=== PATIENT | female | born 1975 | race Caucasian/White ===

== ENCOUNTER → 2017-09-25 | Outpatient (CLI) | payer OTHER ==
--- NOTE | 2017-09-25 16:53 | P.HPBAR ---
Bariatric H&P - History & Physicial H&P Date: 09/25/17 History & Physicial: Visit/CC: Patient initial contact: Initial weight: Initial weight in pounds: Height: Initial BMI: Last weight: Current weight: 181 Current weight in pounds: Current BMI: [place] body weight (based on NIH guidelines): Excess body weight loss: The patient is a 42 year-old F who presents for Bariatric Assessment. The patient presents today for lab band follow up. She's not been seen in approximately 8 years. She has complaints of pain at her port site. She states she was lifting heavy object felt some pain there. She's also developed a well-formed panniculus and wishes to undergo panniculectomy. Past Medical History Additional Past Medical History / Comment(s): anemia "pretty much" resolved after hysterectomy performed History of Any Multi-Drug Resistant Organisms: None Reported Past Surgical History: Bariatric Surgery, Cholecystectomy, Hysterectomy Additional Past Surgical History / Comment(s): lap band placed 2008 (?), partial hysterectomy Apr 2017 Past Anesthesia/Blood Transfusion Reactions: No Reported Reaction, Motion Sickness Additional Past Anesthesia/Blood Transfusion Reaction / Comm: No blood transfusion to date. MOtion sickness noted on rides, not in vehicles Past Psychological History: No Psychological Hx Reported Smoking Status: Never smoker Past Alcohol Use History: Rare Past Drug Use History: None Reported Surgical - Exam - General well developed, no distress - Abdomen No evidence of hernia at the port site. Patient is well-formed panniculus with evidence of chronic skin irritation's. Abdomen: soft, non tender Bariatric Assessment & Plan Plan: Panniculus. Patient will undergo authorization for panniculectomy. Her port site will be observed. There is known 70 infection or hernia. I have reassured patient she most likely has a small string to the area. Bariatric Checklist Checklist: Plan: Checklist: EGD: 1. Hiatal hernia: 2. H. Pylori: HgbA1c: Vitamin D: Smoking: Never smoker Primary care physician referral: Psychiatry clearance: Cardiology clearance: Sleep study: Diet journal: VTE risk score: VTE risk level: Rehab needs at discharge:
[2017-09-25 17:19] VITALS: BP 96/50; PULSE 78; TEMP 98.2; BMI 32.0
== END ==
LOC: BARWHC3 15:40
PROVIDERS: ATTEND Surgery
DX: Z48.815 Encounter for surgical aftercare following surgery on the digestive system (principal); E65 Localized adiposity; Z98.84 Bariatric surgery status
CPT/HCPCS: 99211

== ENCOUNTER → 2020-02-17 | Outpatient (CLI) | payer OTHER ==
[2020-02-17 13:49] VITALS: BP 120/77; PULSE 61; TEMP 98.1; BMI 35.4
--- NOTE | 2020-02-17 14:30 | P.HPBAR ---
Bariatric H&P - History & Physicial H&P Date: 02/17/20 History & Physicial: Visit/CC: lap band adjustment; poss PENELOPENI Patient initial contact: Initial weight: Initial weight in pounds: Height: 5 ft 3 in Initial BMI: Last weight: Current weight: 90.718 kg Current weight in pounds: 200.00 Current BMI: 35.4 [place] body weight (based on NIH guidelines): 52.163 kg Excess body weight loss: The patient is a 45 year-old F who presents for Bariatric Assessment. Patient presents today for LAP-BAND adjustment. Patient is requesting a fill her band. Past Medical History Additional Past Medical History / Comment(s): anemia "pretty much" resolved after hysterectomy performed; vitamin defiency History of Any Multi-Drug Resistant Organisms: None Reported Past Surgical History: Bariatric Surgery, Cholecystectomy, Hysterectomy Additional Past Surgical History / Comment(s): lap band placed 2008 (?), partial hysterectomy Apr 2017 Past Anesthesia/Blood Transfusion Reactions: No Reported Reaction, Motion Sickness Additional Past Anesthesia/Blood Transfusion Reaction / Comm: No blood transfusion to date. MOtion sickness noted on rides, not in vehicles Smoking Status: Never smoker Surgical - Exam Vital Signs Temp Pulse BP 98.1 F 61 120/77 02/17/20 13:30 02/17/20 13:30 02/17/20 13:30 - General well nourished, no distress - Eyes PERRL - ENT normal pinna - Neck no masses - Respiratory normal expansion - Cardiovascular Rhythm: regular - Abdomen Abdomen: soft, non tender Bariatric Assessment & Plan Plan: Patient's lap band adjustment. She 0.5 mL added to her band. Bariatric Checklist Checklist: Plan: Checklist: EGD: 1. Hiatal hernia: 2. H. Pylori: HgbA1c: Vitamin D: Smoking: Never smoker Primary care physician referral: no PCP - Psychiatry clearance: Cardiology clearance: Sleep study: Diet journal: VTE risk score: VTE risk level: Rehab needs at discharge:
== END | disposition home or self-care (01) ==
LOC: BARWHC3 13:14
PROVIDERS: ATTEND Surgery
DX: Z46.51 Encounter for fitting and adjustment of gastric lap band (principal); Z98.84 Bariatric surgery status; Z90.49 Acquired absence of other specified parts of digestive tract
CPT/HCPCS: 99212

== ENCOUNTER → 2020-03-16 | Outpatient (CLI) | payer OTHER ==
[2020-03-16 13:33] VITALS: BP 120/79; PULSE 66; RESP 18; TEMP 98
--- NOTE | 2020-03-16 13:48 | P.HPBAR ---
Bariatric H&P - History & Physicial H&P Date: 03/16/20 History & Physicial: Visit/CC: lap band adjustment Patient initial contact: Initial weight: Initial weight in pounds: Height: 5 ft 3 in Initial BMI: Last weight: Current weight: 92.079 kg Current weight in pounds: Current BMI: [place] body weight (based on NIH guidelines): Excess body weight loss: The patient is a 45 year-old F who presents for Bariatric Assessment. Patient presents today for band adjustment. She currently is hungry. Past Medical History Additional Past Medical History / Comment(s): anemia "pretty much" resolved after hysterectomy performed; vitamin defiency History of Any Multi-Drug Resistant Organisms: None Reported Past Surgical History: Bariatric Surgery, Cholecystectomy, Hysterectomy Additional Past Surgical History / Comment(s): lap band placed 2008 (?), partial hysterectomy Apr 2017 Past Anesthesia/Blood Transfusion Reactions: No Reported Reaction, Motion Sickness Additional Past Anesthesia/Blood Transfusion Reaction / Comm: No blood transfusion to date. MOtion sickness noted on rides, not in vehicles Past Psychological History: No Psychological Hx Reported Smoking Status: Never smoker Past Alcohol Use History: Rare Past Drug Use History: None Reported Surgical - Exam Vital Signs Temp Pulse Resp BP 98 F 66 18 120/79 03/16/20 13:29 03/16/20 13:29 03/16/20 13:29 03/16/20 13:29 - General well developed, well nourished, no distress - Eyes PERRL - ENT normal pinna - Neck no masses - Respiratory normal expansion - Cardiovascular Rhythm: regular - Abdomen Abdomen: soft, non tender Bariatric Assessment & Plan Plan: Patient's lap band adjustment. 0.5 mL was added to her band. She currently has 9 mL in the band. She'll follow-up in 4 weeks. Bariatric Checklist Checklist: Plan: Checklist: EGD: 1. Hiatal hernia: 2. H. Pylori: HgbA1c: Vitamin D: Smoking: Never smoker Primary care physician referral: Tabatha PANDA Psychiatry clearance: Cardiology clearance: Sleep study: Diet journal: VTE risk score: VTE risk level: Rehab needs at discharge:
== END | disposition home or self-care (01) ==
LOC: BARWHC3 13:14
PROVIDERS: ATTEND Surgery
DX: Z46.51 Encounter for fitting and adjustment of gastric lap band (principal); Z98.84 Bariatric surgery status
CPT/HCPCS: 99212

== ENCOUNTER → 2020-04-27 | Outpatient (CLI) | payer OTHER ==
[2020-04-27 14:45] VITALS: BP 112/74; PULSE 78; TEMP 98.2; BMI 34.7
--- NOTE | 2020-04-27 14:46 | P.HPBAR ---
Bariatric H&P - History & Physicial H&P Date: 04/27/20 History & Physicial: Visit/CC: Patient initial contact: Initial weight: Initial weight in pounds: Height: 5 ft 3 in Initial BMI: Last weight: Current weight: 88.904 kg Current weight in pounds: Current BMI: [place] body weight (based on NIH guidelines): Excess body weight loss: The patient is a 45 year-old F who presents for Bariatric Assessment. She presents today for LAP-BAND adjustment. She has complaints of dysphagia. Past Medical History Additional Past Medical History / Comment(s): anemia "pretty much" resolved after hysterectomy performed; vitamin defiency History of Any Multi-Drug Resistant Organisms: None Reported Past Surgical History: Bariatric Surgery, Cholecystectomy, Hysterectomy Additional Past Surgical History / Comment(s): lap band placed 2008 (?), partial hysterectomy Apr 2017 Past Anesthesia/Blood Transfusion Reactions: No Reported Reaction, Motion Sickness Additional Past Anesthesia/Blood Transfusion Reaction / Comm: No blood transfusion to date. MOtion sickness noted on rides, not in vehicles Past Psychological History: No Psychological Hx Reported Smoking Status: Never smoker Past Alcohol Use History: Rare Past Drug Use History: None Reported Surgical - Exam - General well developed, well nourished, no distress - Eyes PERRL - ENT normal pinna - Neck no masses - Respiratory normal expansion - Cardiovascular Rhythm: regular - Abdomen Abdomen: soft, non tender Bariatric Assessment & Plan Plan: Patient LAP-BAND was adjusted. She had 0.3 mL removed from her band. She currently 0.7 mL in the band. She will follow-up in 4 weeks. Bariatric Checklist Checklist: Plan: Checklist: EGD: 1. Hiatal hernia: 2. H. Pylori: HgbA1c: Vitamin D: Smoking: Never smoker Primary care physician referral: Tabatha PANDA Psychiatry clearance: Cardiology clearance: Sleep study: Diet journal: VTE risk score: VTE risk level: Rehab needs at discharge:
== END | disposition home or self-care (01) ==
LOC: BARWHC3 14:14
PROVIDERS: ATTEND Surgery
DX: Z46.51 Encounter for fitting and adjustment of gastric lap band (principal)
CPT/HCPCS: 99212

== ENCOUNTER → 2020-06-22 | Outpatient (CLI) | payer OTHER ==
[2020-06-22 13:50] VITALS: BP 117/79; PULSE 76; RESP 18; TEMP 98.4; BMI 36.3
--- NOTE | 2020-06-22 15:14 | P.HPBAR ---
Bariatric H&P - History & Physicial H&P Date: 06/22/20 History & Physicial: Visit/CC: lap band follow up Patient initial contact: Initial weight: Initial weight in pounds: Height: 5 ft 3 in Initial BMI: Last weight: Current weight: 92.986 kg Current weight in pounds: 205.00 Current BMI: 36.3 [place] body weight (based on NIH guidelines): 52.163 kg Excess body weight loss: The patient is a 45 year-old F who presents for Bariatric Assessment. Patient presents today for her Alesia adjusted. She currently is hungry. Past Medical History Additional Past Medical History / Comment(s): anemia "pretty much" resolved after hysterectomy performed; vitamin defiency History of Any Multi-Drug Resistant Organisms: None Reported Past Surgical History: Bariatric Surgery, Cholecystectomy, Hysterectomy Additional Past Surgical History / Comment(s): lap band placed 2008 (?), partial hysterectomy Apr 2017 Past Anesthesia/Blood Transfusion Reactions: No Reported Reaction, Motion Sickness Additional Past Anesthesia/Blood Transfusion Reaction / Comm: No blood transfusion to date. MOtion sickness noted on rides, not in vehicles Past Psychological History: No Psychological Hx Reported Smoking Status: Never smoker Past Alcohol Use History: Rare Past Drug Use History: None Reported Surgical - Exam Vital Signs Temp Pulse Resp BP 98.4 F 76 18 117/79 06/22/20 13:46 06/22/20 13:46 06/22/20 13:46 06/22/20 13:46 - General well developed, well nourished, no distress - Eyes PERRL - ENT normal pinna - Neck no masses - Respiratory normal expansion - Cardiovascular Rhythm: regular - Abdomen Abdomen: soft, non tender Bariatric Assessment & Plan Plan: Patient's lap band was adjusted. Should serve 0.5 mL in the band. She currently is 9 mL in the band. Bariatric Checklist Checklist: Plan: Checklist: EGD: 1. Hiatal hernia: 2. H. Pylori: HgbA1c: Vitamin D: Smoking: Never smoker Primary care physician referral: Tabatha PANDA Psychiatry clearance: Cardiology clearance: Sleep study: Diet journal: VTE risk score: VTE risk level: Rehab needs at discharge:
== END ==
LOC: BARWHC3 13:12
PROVIDERS: ATTEND Surgery
DX: T73.0XXA Starvation, initial encounter
CPT/HCPCS: 99212

== ENCOUNTER → 2020-11-04 | Outpatient (CLI) | payer OTHER ==
[2020-11-04 10:33] VITALS: BP 112/76; PULSE 66; TEMP 98; BMI 34.5
--- NOTE | 2020-11-04 13:06 | P.HPBAR ---
Bariatric H&P - History & Physicial H&P Date: 11/04/20 History & Physicial: Visit/CC: lap band follow up Patient initial contact: Initial weight: Initial weight in pounds: Height: 5 ft 3 in Initial BMI: Last weight: Current weight: 88.451 kg Current weight in pounds: 195.00 Current BMI: 34.5 [place] body weight (based on NIH guidelines): 52.163 kg Excess body weight loss: The patient is a 45 year-old F who presents for Bariatric Assessment. Patient's complaints of dysphagia. Is requesting fluid removed. Past Medical History Additional Past Medical History / Comment(s): anemia "pretty much" resolved after hysterectomy performed; vitamin defiency History of Any Multi-Drug Resistant Organisms: None Reported Past Surgical History: Bariatric Surgery, Cholecystectomy, Hysterectomy Additional Past Surgical History / Comment(s): lap band placed 2008 (?), partial hysterectomy Apr 2017 Past Anesthesia/Blood Transfusion Reactions: No Reported Reaction, Motion Sickness Additional Past Anesthesia/Blood Transfusion Reaction / Comm: No blood transfusion to date. MOtion sickness noted on rides, not in vehicles Past Psychological History: No Psychological Hx Reported Smoking Status: Never smoker Past Alcohol Use History: Rare Past Drug Use History: None Reported Surgical - Exam Vital Signs Temp Pulse BP 98 F 66 112/76 11/04/20 10:28 11/04/20 10:28 11/04/20 10:28 - General well developed, well nourished, no distress - Eyes PERRL - ENT normal pinna - Neck no masses - Respiratory normal expansion - Cardiovascular Rhythm: regular - Abdomen Abdomen: soft, non tender Bariatric Assessment & Plan Plan: Patient LAP-BAND was empty. She had 7 mL her band. She'll follow-up in 4 weeks. Showed an esophagram performed today. Bariatric Checklist Checklist: Plan: Checklist: EGD: 1. Hiatal hernia: 2. H. Pylori: HgbA1c: Vitamin D: Smoking: Never smoker Primary care physician referral: Tabatha PANDA Psychiatry clearance: Cardiology clearance: Sleep study: Diet journal: VTE risk score: VTE risk level: Rehab needs at discharge:
--- NOTE | 2020-11-04 13:16 | FL ---
EXAMINATION TYPE: FL barium swallow DATE OF EXAM: 11/04/2020 CLINICAL HISTORY: Reflux type symptoms in patient with lap band TECHNIQUE: A single contrast esophagram is performed utilizing air and barium. A total of 59 second s of fluoroscopic time was utilized during procedure and 56 images obtained. COMPARISON: 12/13/2010 FINDINGS: Lap band is in place. There is significant delay of passage of contrast from the lower esop hagus through the lap band and into the stomach throughout this examination. Pooling of contrast mate rial was noted in the lower esophagus due to delayed transit through the gastroesophageal junction/la p band. No intrinsic/extrinsic masses of the esophagus were noted. IMPRESSION: Delay of passage of contrast from the lower esophagus through the lap band into the stomach.
== END | disposition home or self-care (01) ==
LOC: BARWHC3 10:08
PROVIDERS: ATTEND Surgery
DX: E66.01 Morbid (severe) obesity due to excess calories (principal); Z68.34 Body mass index [BMI] 34.0-34.9, adult
CPT/HCPCS: 74220; G0463; 99212

== ENCOUNTER → 2022-11-14 | Outpatient (CLI) | payer BC ==
[2022-11-14 14:34] VITALS: BP 143/90; PULSE 74; TEMP 98; BMI 42.7
--- NOTE | 2022-11-18 10:06 | P.HPBAR ---
Bariatric H&P - History & Physicial H&P Date: 11/14/22 History & Physicial: Visit/CC: lap band follow up Patient initial contact: Initial weight: Initial weight in pounds: Height: 5 ft 3 in Initial BMI: Last weight: Current weight: 109.316 kg Current weight in pounds: 241.00 Current BMI: 42.7 [place] body weight (based on NIH guidelines): 52.163 kg Excess body weight loss: The patient is a 47 year-old F who presents for Bariatric Assessment. Patient resents today for [place] follow-up. She's requesting a fill of her band. She is not been seen in many years. Past Medical History Additional Past Medical History / Comment(s): anemia "pretty much" resolved after hysterectomy performed; vitamin defiency History of Any Multi-Drug Resistant Organisms: None Reported Past Surgical History: Bariatric Surgery, Cholecystectomy, Hysterectomy Additional Past Surgical History / Comment(s): lap band placed 2008 (?), partial hysterectomy Apr 2017 Past Anesthesia/Blood Transfusion Reactions: No Reported Reaction, Motion Sickness Additional Past Anesthesia/Blood Transfusion Reaction / Comm: No blood transfusion to date. MOtion sickness noted on rides, not in vehicles Smoking Status: Never smoker Surgical - Exam Vital Signs Temp Pulse BP 98 F 74 143/90 11/14/22 14:31 11/14/22 14:31 11/14/22 14:31 - General well developed, well nourished - Abdomen Abdomen: soft, non tender Bariatric Assessment & Plan Plan: Patient's LAP-BAND was just. She had 4 mL added to the band. She'll follow-up in 4 weeks. Bariatric Checklist Checklist: Plan: Checklist: EGD: 1. Hiatal hernia: 2. H. Pylori: HgbA1c: Vitamin D: Smoking: Never smoker Primary care physician referral: Tabatha PANDA Psychiatry clearance: Cardiology clearance: Sleep study: Diet journal: VTE risk score: VTE risk level: Rehab needs at discharge:
== END ==
LOC: BARWHC3 14:06
PROVIDERS: ATTEND Surgery
DX: E66.01 Morbid (severe) obesity due to excess calories (principal); Z46.51 Encounter for fitting and adjustment of gastric lap band; Z68.41 Body mass index [BMI] 40.0-44.9, adult
CPT/HCPCS: 99212

== ENCOUNTER → 2022-12-19 | Outpatient (CLI) | payer BC ==
[2022-12-19 14:35] VITALS: BP 107/63; PULSE 82; TEMP 98.3; BMI 42.3
--- NOTE | 2023-01-25 10:47 | P.HPBAR ---
Bariatric H&P - History & Physicial H&P Date: 12/19/22 History & Physicial: Visit/CC: lap band Patient initial contact: Initial weight: Initial weight in pounds: Height: 5 ft 3 in Initial BMI: Last weight: Current weight: 108.409 kg Current weight in pounds: 239.00 Current BMI: 42.3 [place] body weight (based on NIH guidelines): 52.163 kg Excess body weight loss: The patient is a 48 year-old F who presents for Bariatric Assessment. This is a 38-year-old female presents today for LAP-BAND follow-up. She's requesting a fill of her band. She currently feels hungry. Past Medical History Additional Past Medical History / Comment(s): anemia "pretty much" resolved after hysterectomy performed; vitamin defiency History of Any Multi-Drug Resistant Organisms: None Reported Past Surgical History: Bariatric Surgery, Cholecystectomy, Hysterectomy Additional Past Surgical History / Comment(s): lap band placed 2008 (?), partial hysterectomy Apr 2017 Past Anesthesia/Blood Transfusion Reactions: No Reported Reaction, Motion Sickness Additional Past Anesthesia/Blood Transfusion Reaction / Comm: No blood transfusi on to date. MOtion sickness noted on rides, not in vehicles Smoking Status: Never smoker Surgical - Exam Vital Signs Temp Pulse BP 98.3 F 82 107/63 12/19/22 14:24 12/19/22 14:24 12/19/22 14:24 - General well developed, well nourished, no distress - Eyes PERRL - ENT normal pinna - Neck no masses - Respiratory normal expansion - Cardiovascular Rhythm: regular - Abdomen Abdomen: soft, non tender Bariatric Assessment & Plan Plan: Patient's LAP-BAND was adjusted. She had 2 mL added to the band. She'll follow-up in 4 weeks. Bariatric Checklist Checklist: Plan: Checklist: EGD: 1. Hiatal hernia: 2. H. Pylori: HgbA1c: Vitamin D: Smoking: Never smoker Primary care physician referral: Tabatha PANDA Psychiatry clearance: Cardiology clearance: Sleep study: Diet journal: VTE risk score: VTE risk level: Rehab needs at discharge:
== END ==
LOC: BARWHC3 13:57
PROVIDERS: ATTEND Surgery
DX: Z46.51 Encounter for fitting and adjustment of gastric lap band (principal); Z98.84 Bariatric surgery status; Z90.710 Acquired absence of both cervix and uterus
CPT/HCPCS: 99212

== ENCOUNTER → 2023-01-09 | Outpatient (CLI) | payer BC ==
[2023-01-09 14:27] VITALS: BP 122/83; PULSE 79; TEMP 97.9; BMI 42.3
--- NOTE | 2023-01-25 09:01 | P.HPBAR ---
Bariatric H&P - History & Physicial H&P Date: 01/09/23 History & Physicial: Visit/CC: lap band Patient initial contact: Initial weight: Initial weight in pounds: Height: 5 ft 3 in Initial BMI: Last weight: Current weight: 108.409 kg Current weight in pounds: 239.00 Current BMI: 42.3 [place] body weight (based on NIH guidelines): 52.163 kg Excess body weight loss: The patient is a 48 year-old F who presents for Bariatric Assessment. Patient resents today for bariatric follow-up. She is requesting a fill of her band. She currently feels hungry. Past Medical History Additional Past Medical History / Comment(s): anemia "pretty much" resolved after hysterectomy performed; vitamin defiency History of Any Multi-Drug Resistant Organisms: None Reported Past Surgical History: Bariatric Surgery, Cholecystectomy, Hysterectomy Additional Past Surgical History / Comment(s): lap band placed 2008 (?), partial hysterectomy Apr 2017 Past Anesthesia/Blood Transfusion Reactions: No Reported Reaction, Motion Sickness Additional Past Anesthesia/Blood Transfusion Reaction / Comm: No blood transfusion to date. MOtion sickness noted on rides, not in vehicles Past Psychological History: No Psychological Hx Reported Smoking Status: Never smoker Past Alcohol Use History: Rare Past Drug Use History: None Reported Surgical - Exam Vital Signs Temp Pulse BP 97.9 F 79 122/83 01/09/23 14:22 01/09/23 14:22 01/09/23 14:22 - General well developed, well nourished, no distress - Eyes PERRL - Neck no masses - Respiratory normal expansion - Cardiovascular Rhythm: regular - Abdomen Abdomen: soft, non tender Bariatric Assessment & Plan Plan: Patient's LAP-BAND was just. She had 2 mL added band. She currently has 6 mL in the band. She'll follow-up in 4 weeks. Bariatric Checklist Checklist: Plan: Checklist: EGD: 1. Hiatal hernia: 2. H. Pylori: HgbA1c: Vitamin D: Smoking: Never smoker Primary care physician referral: Tabatha PANDA Psychiatry clearance: Cardiology clearance: Sleep study: Diet journal: VTE risk score: VTE risk level: Rehab needs at discharge:
== END ==
LOC: BARWHC3 14:07
PROVIDERS: ATTEND Surgery
DX: E66.01 Morbid (severe) obesity due to excess calories (principal); Z46.51 Encounter for fitting and adjustment of gastric lap band; Z98.84 Bariatric surgery status; Z90.710 Acquired absence of both cervix and uterus; Z68.41 Body mass index [BMI] 40.0-44.9, adult
CPT/HCPCS: 99212